=== PATIENT | male | born 1980 | race Caucasian/White ===

== ENCOUNTER 2021-04-15 17:51 | Emergency (ER) | payer MEDICARE, OTHER ==
[~2021-04-15] VITALS: Ht 180.3 cm; Wt 94.3 kg
[~2021-04-15 17:51] MED LIST: ALBU90OI INH; Amoxicillin500 MG PO; Cleocin HCl300 MG PO; DOXY100 PO; HYDACE5 PO; HYDMOR2 PO; IBUP600 PO; IBUP800 PO; LEVFLO500 PO; OMEP20ER PO; OXYACE7.5T PO; PENVK500 PO; PROACE100 PO; PROC10 PO; PROM25 PO; Percocet 5-3251 EACH PO; Peridex480 ML PO; RXHYDMOR2 PO; RXPROM25 PO; TRAM50 PO; Ultram50 MG PO
[2021-04-15 20:11] LABS: SARS-Cov-2 (COVID-19) PCR, MMC POSITIVE (NEGATIVE)
[2021-04-15] MEDS ORDERED: ONDA4ODT MM (20:34)
== END 2021-04-15 20:50 | disposition home or self-care (01) ==
LOC: ER 17:51
PROVIDERS: Physician Assistant
DX: U07.1 COVID-19 (principal); R11.2 Nausea with vomiting, unspecified; J45.909 Unspecified asthma, uncomplicated; F17.210 Nicotine dependence, cigarettes, uncomplicated
CPT/HCPCS: 71045; 96374; 99284-25; A9270; J2405; J7030; U0004

== ENCOUNTER → 2024-04-28 | Outpatient (CLI) | payer MEDICARE, OTHER ==
[~2024-04-28] MED LIST changes: +ONDA4ODT MM
[2024-04-28 14:35] LABS: BASOPHILS PERCENT AUTO 1 % (0-2); EOSINOPHILS ABSOLUTE AUTO 0.35 K/mm3 (0.00-0.68); EOSINOPHILS PERCENT AUTO 2 % (0-6); Hematocrit 44.9 % (37.0-53.0); Hemoglobin 15.6 g/dL (13.5-17.5); IMMATURE GRAN ABSOLUTE AUTO 0.11 K/mm3 (0.00-0.10); IMMATURE GRAN PERCENT AUTO 1 % (0-1); LYMPHOCYTES ABSOLUTE AUTO 3.14 K/mm3 (0.84-5.20); LYMPHOCYTES PERCENT AUTO 18 % (21-46); MONOCYTES ABSOLUTE AUTO 1.69 K/mm3 (0.16-1.47); MONOCYTES PERCENT AUTO 10 % (4-13); Mean Corpuscular HGB 29.8 pg (26.0-34.0); Mean Corpuscular HGB Conc 34.7 g/dL (31.5-36.5); Mean Corpuscular Volume 86 fL (80-100); Mean Platelet Volume 10.2 fL (9.1-12.4); NEUTROPHILS PERCENT AUTO 69 % (41-73); Platelet Count 369 K/mm3 (150-400); RDW Coefficient Variation 12.2 % (11.7-14.2); RDW Standard Deviation 38.1 fL (35.1-46.3); Red Blood Cell Count 5.23 M/mm3 (4.30-5.90); White Blood Cell Count 17.29 K/mm3 (4.00-11.30)
[2024-04-28 14:49] LABS: Albumin, Blood 3.5 g/dL (3.4-5.0); Albumin/Globulin Ratio 0.7 (0.8-1.8); Bilirubin, Total 0.3 mg/dL (0.1-1.0); Calcium, Blood 9.6 mg/dL (8.5-10.1); Free Thyroxine 0.96 ng/dL (0.70-1.60); Globulin, Blood 4.9 g/dL (2.2-4.0); Potassium, Blood 4.3 mmol/L (3.5-5.5); Thyroid Stimulating Hormone 0.614 uIU/mL (0.360-4.800); Total Protein, Blood 8.4 g/dL (6.4-8.2)
== END ==
LOC: LAB 14:25 → LAB SHORT 14:25
PROVIDERS: Physician Assistant Surgical
DX: R53.83 Other fatigue (principal)
CPT/HCPCS: 80053; 84439; 84443; 84481; 85025